=== PATIENT | male | born 1985 | race Caucasian/White ===

== ENCOUNTER 2020-07-10 18:59 | Emergency (ER) | payer OTHER, SELFPAY ==
--- NOTE | 2020-07-10 19:08 | ED.GENADULT ---
HPI - General Adult General Chief complaint: Wound/Laceration Stated complaint: Laceration Time Seen by Provider: 07/10/20 19:08 Source: patient Mode of arrival: ambulatory Limitations: no limitations History of Present Illness HPI narrative: 35-year-old male patient presents to the [facility] with complaints of a great toe laceration to the left foot. Patient states he was getting out some kind of appliance that had a blade in it and states when he picked it up the blade dropped onto his toe lacerating his toe. Patient unsure when his last tetanus shot was. Related Data Home Medications Medication Instructions Recorded Confirmed insulin glargine [Lantus Solostar 25 unit SUBCUT DAILY 07/10/20 07/10/20 U-100 Insulin] insulin lispro [Humalog U-100 See Rx Instructions .ROUTE .COMPLEX 07/10/20 07/10/20 Insulin] Allergies Allergy/AdvReac Type Severity Reaction Status Date / Time No Known Allergies Allergy Verified 07/10/20 19:29 Review of Systems Review of Systems: Narrative: CONSTITUTIONAL: Denies fever, chills, or sweats. EYES: Denies visual changes, redness, or discharge. ENT: Denies rhinorrhea, congestion, sore throat, or otalgia. CARDIOVASCULAR: Denies chest pain, palpitations, or edema. RESPIRATORY: Denies cough or dyspnea. GASTROINTESTINAL: Denies abdominal pain, nausea, vomiting, or diarrhea. GENITOURINARY: Denies dysuria or hematuria. SKIN: Denies rash or itching. Positive laceration to left great toe MUSCULOSKELETAL: Denies back pain, joint pain, or myalgia. NEUROLOGIC: Denies headache, numbness, or weakness. PSYCHIATRIC: Denies anxiety or depression. [facility] Past Medical History Medical History (Updated 07/10/20 @ 19:47 by SADA Aponte) Type 1 diabetes Comments At the time of my signature I agree with nursing past medical history, surgical, social, and family history. There is no relevant family history pertinent to the presenting complaint. Exam Narrative: Exam Narrative: GENERAL: Well-appearing, well-nourished, and in no acute distress. HEAD: Normocephalic, atraumatic. EYES: PERRLA and EOMI. ENT: Nares clear, no rhinorrhea or epistaxis. Mucous membranes moist. NECK: Supple. No lymphadenopathy CHEST: Clear to auscultation. No respiratory distress. HEART: Regular rate and rhythm. No murmur heard. Normal peripheral pulses. ABDOMEN: Soft, nontender, nondistended, normal active bowel sounds. EXTREMITIES: Normal range of motion. No edema. SKIN: Warm, dry, no rash. Patient has approximately 2.5 centimeter laceration horizontally across the left great toe over the joint area. Patient has good sensation good cap refill. Patient does have good range of motion to the toe. No obvious foreign bodies no deep tendon injury noted NEURO: No focal deficits. Alert and oriented x3. Course Vital Signs Vital signs: Vital Signs Temperature 36.8 C 07/10/20 19:10 Pulse Rate 83 07/10/20 19:10 Respiratory Rate 18 07/10/20 19:10 Blood Pressure 145/71 H 07/10/20 19:10 Pulse Oximetry 98 07/10/20 19:10 Temperature 36.8 C 07/10/20 19:10 Pulse Rate 83 07/10/20 19:10 Respiratory Rate 18 07/10/20 19:10 Blood Pressure 145/71 H 07/10/20 19:10 Pulse Oximetry 98 07/10/20 19:10 Vital signs reviewed The patient has been informed that they may have pre-hypertension or Hypertension based on a BP reading in the department. I recommend that the patient call the primary care provider listed on their discharge instructions or a physician of their choice this week to arrange follow up for further evaluation of possible pre-hypertension or Hypertension Procedures Laceration Laceration 1: Date: 07/10/20 Time: 19:35 Site: lower extremity (Great toe) Side (If applicable): left Size (cm): 2.5 Description: linear Depth: simple, single layer Local Anesthetic: lidocaine 1% Amount of anesthesia used (mL): 4 Pre-repair: wound e
[2020-07-10 19:10] VITALS: BP 145/71; PULSE 83; RESP 18; TEMP 36.8; O2SAT 98
[2020-07-10] MEDS: TETANUS,DIPHTHERIA,AC PERTUSSIS ADULT (0.5 ML) BOOSTRIX IM (19:30)
== END 2020-07-10 19:50 | disposition home or self-care (01) ==
PROVIDERS: Emergency Provider Nurse Practitioner Family
DX: S91.112A Laceration without foreign body of left great toe without damage to nail, initial encounter (principal); W20.8XXA Other cause of strike by thrown, projected or falling object, initial encounter; Z23 Encounter for immunization; E10.9 Type 1 diabetes mellitus without complications
CPT/HCPCS: 12001; 90471; 90715; 99213; G0463